=== PATIENT | female | born 1955 | race African-American/Black ===

== ENCOUNTER 2017-11-04 08:57 | Observation (INO) ==
[2017-11-04 09:35] LABS: Basophils % 0.2 %; Eosinophils # 0.1 K/mcL (0.0-0.6); Eosinophils % 0.6 %; Hematocrit 44.3 % (35.3-44.9); Immature Granulocytes % 0.5 % (0-4); Lymphocytes # 2.2 K/mcL (0.6-4.6); Lymphocytes % 21.9 %; Mean Corpuscular HGB Conc 33.9 g/dL (31.6-35.5); Mean Corpuscular Hemoglobin 27.8 pg (28.0-33.3); Mean Corpuscular Volume 82.2 fL (83.0-100.0); Mean Platelet Volume 11.5 fL (9.4-12.4); Monocytes # 0.6 K/mcL (0.0-1.3); Monocytes % 5.8 %; Neutrophils # 7.2 K/mcL (1.6-8.9); Platelet Count 223 K/mcL (140-400); Red Blood Count 5.39 M/mcL (3.82-4.97); Red Cell Distribution Width 13.1 % (11.5-14.5)
[2017-11-04 09:41] LABS: Prothrombin Time 11.3 Seconds (9.4-12.1)
[2017-11-04 09:43] LABS: Activated Partial Thrombo Time 36.6 Seconds (26.0-36.0)
[2017-11-04 09:57] LABS: BUN/Creatinine Ratio 16 (6-26); Blood Urea Nitrogen 10 mg/dL (8-23); Calcium 9.5 mg/dL (8.6-10.3); Carbon Dioxide 27 mEq/L (23-29); Chloride 101 mEq/L (98-107); Glucose 331 mg/dL (70-105); Osmolality,Calculated 290 (280-300); Potassium 3.7 mEq/L (3.5-5.1); Sodium 134 mEq/L (136-145); Troponin I < 0.03 ng/mL (< 0.04); eGFR For Non-African Americans > 60 (> 60)
[2017-11-04] MEDS ORDERED: Aspirin 81 MG TAB.CHEW PO ONE (10:34)
[2017-11-04] MEDS ORDERED: Ondansetron 4 MG/2 ML VIAL IVP ONE (10:34)
[2017-11-04] MEDS ORDERED: 0.9 % Sodium Chloride 1,000 ML IVC ONE (10:34)
[2017-11-04] MEDS ORDERED: *HR* FentaNYL (PF) 100 MCG/2 ML VIAL IVP ONE (10:34)
[2017-11-04 10:55] LABS: Bilirubin,Urine Negative (Negative); Blood,Urine Negative (Negative); Clarity,Urine Clear (Clear); Color,Urine Yellow (Yellow); Glucose,Urine (UA) >=1000 mg/dL (Normal); Ketones,Urine Negative (Negative); Leukocyte Esterase,Urine Negative (Negative); Nitrite,Urine Negative (Negative); Protein,Urine Negative (Neg-Trace); Specific Gravity,Urine 1.025 (1.010-1.025); Urobilinogen,Urine Normal (Normal)
--- NOTE | 2017-11-04 11:12 | Emergency Department Note ---
Disposition Clinical Impression: Chest pain, rule out acute myocardial infarction Disposition: Admitted As Inpatient Condition: Fair Instructions: Chest Pain (ED) Time of Disposition: 11:00 General Adult HPI - General Chief complaint: ED General Medical Stated complaint: CP x3 wks Time Seen by Provider: 11/04/17 09:06 Source: patient Mode of arrival: ambulatory Limitations: no limitations Nursing Notes Reviewed: Yes Vital Signs Reviewed: Yes - History of Present Illness HPI Narrative: 61-year-old female presents emergency Department with concerns of chest pain, nausea, shortness of breath, weakness and fatigue increasing over the past 3 days. Patient does state her symptoms have been present intermittently over the past 3 weeks however they have been become much worse over the past 3 days. Patient denies a history of previous cardiac disease. She does have a history of lupus for which she takes plaque 10. She has a history of diabetes, tobacco abuse and elevated blood pressure. Patient denies recent fevers, chills , diarrhea. She was initially concerned about a skin lesion to the anterior abdomen which she states often occurs secondary to her lupus. Pain Scale: 7 - Related Data Home Medications Medication Instructions Recorded Confirmed Albuterol Sulfate [Proair Hfa] 2 puff IH Q4-6H PRN 12/08/16 12/08/16 Aspirin [Lo-Dose Aspirin EC] 81 mg PO DAILY 12/08/16 12/08/16 Atenolol [Tenormin] 50 mg PO DAILY 12/08/16 12/08/16 Budesonide/Formoterol 160/4.5 2 puff IH BID 12/08/16 12/08/16 [Symbicort 160/4.5] Cholecalciferol (D-3) [Vitamin D] 1,000 unit PO DAILY 12/08/16 12/08/16 Exenatide Microspheres [Bydureon] 2 mg SQ MAZARIEGOS 12/08/16 12/08/16 Hydroxychloroquine [Plaquenuil] 400 mg PO DAILY 12/08/16 12/08/16 Insulin Glargine,Hum.rec.anlog 78 unit SQ HS 12/08/16 12/08/16 [Lantus Solostar] Ipratropium/Albuterol Neb [Duoneb] 3 ml IH Q4HR 12/08/16 12/08/16 Losartan/HCTZ [Hyzaar 50-12.5 1 tab PO DAILY 12/08/16 12/08/16 Tablet] Lovastatin 10 mg PO DAILY 12/08/16 12/08/16 Mirtazapine [Remeron] 15 mg PO DAILY 12/08/16 12/08/16 Omeprazole [PriLOSEC] 20 mg PO DAILY 12/08/16 12/08/16 OxyCODONE Immed Rel [Roxicodone 5 5 mg PO Q8HR PRN 12/08/16 12/08/16 MG] Potassium Chloride [Klor-Con 10 meq PO DAILY 12/08/16 12/08/16 Sprinkle] Sertraline [Zoloft] 100 mg PO DAILY 12/08/16 12/08/16 clonazePAM [Klonopin] 2 mg PO TID 12/08/16 12/08/16 Previous Rx's Medication Instructions Recorded Simvastatin [Zocor] 20 mg PO HS #30 tablet 12/10/16 Allergies Allergy/AdvReac Type Severity Reaction Status Date / Time No Known Allergies Allergy Verified 11/04/17 09:07 All systems ED: reviewed and negative except as stated. Review of Systems: As Per HPI Past Medical History - Past Medical History Attestation: Yes The following information was validated with the patient. Source: patient Medical history: Reports: diabetes, fibromyalgia, hyperlipidemia, hypertension, other Surgical history: Reports: appendectomy, cholecystectomy, hysterectomy Psychiatric history: Reports: anxiety - Social History Smoking Status: Current some day smoker Smokeless Tobacco Status: No Alcohol use: Reports: none Drug use: Reports: none Physical Exam General: Alert and in no acute distress Skin: Warm, dry, superficial skin lesion to the anterior abdomen without evidence of induration, fluctuance or surrounding erythema Head: Normocephalic and atraumatic Neck: Supple, trachea midline and no tenderness Cardiovascular: RRR, no murmur, normal perfusion Respiratory: CTAB, no wheezing, cough, or respiratory distress Musculoskeletal: Normal strength, no tenderness, swelling or deformity GI: Soft, nontender, nondistended. Bowel sounds present Neuro: A&O to person, place, time and situation. No focal deficits noted on exam Psychiatric: cooperative and appropriate mood and affect. - General Limitations: no limitations General appearance: alert, in no apparent distress Course Vital Signs Temperature 98.1 F 11/04/17 09:06 Pulse Rate 83 11/04/17 09:06 Respiratory Rate 18 11/04/17 09:06 Blood Pressure 142/90 11/04/17 09:06 O2 Sat by Pulse Oximetry 98 11/04/17 09:06 Temperature 98.1 F 11/04/17 10:07 Pulse Rate 75 11/04/17 10:49 Respiratory Rate 16 11/04/17 10:49 Blood Pressure 142/90 11/04/17 10:49 O2 Sat by Pulse Oximetry 98 11/04/17 10:49 Oxygen Delivery Oxygen Delivery Room Air Medical Decision Making - MDM Narrative Medical decision making narrative: Bedside ultrasound did not show evidence of abscess. Abdomen is otherwise soft and is without rigidity or guarding and does not likely have a deep space infection and the skin lesion most likely needs appropriate wound care and does not likely need antibiotics. Patient is not neutropenic. Initial troponin was negative. EKG showed a normal sinus rhythm with a rate of 79 without evidence of STEMI or other dysrhythmia. Patient will be admitted the hospital for further care and evaluation of her chest pain weakness, and fatigue. - Medical Records Medical records reviewed: Yes I reviewed the patient's medical records. - Lab Data Lab results reviewed: Yes I reviewed the patient's lab results. Result diagrams: 11/04/17 09:27 11/04/17 09:27 Lab Results 11/04/17 11/04/17 11/04/17 Range/Units 09:27 09:27 09:27 WBC 10.1 (4.3-11.1) K/mcL RBC 5.39 H (3.82-4.97) M/mcL Hgb 15.0 (11.5-15.4) g/dL Hct 44.3 (35.3-44.9) % MCV 82.2 L (83.0-100.0) fL MCH 27.8 L (28.0-33.3) pg MCHC 33.9 (31.6-35.5) g/dL RDW 13.1 (11.5-14.5) % Plt Count 223 (140-400) K/mcL MPV 11.5 (9.4-12.4) fL Immature Gran % 0.5 (0-4) % Seg Neutrophils % 71.0 % Lymphocytes % 21.9 % Monocytes % 5.8 % Eosinophils % 0.6 % Basophils % 0.2 % Neutrophils # 7.2 (1.6-8.9) K/mcL Lymphocytes # 2.2 (0.6-4.6) K/mcL Monocytes # 0.6 (0.0-1.3) K/mcL Eosinophils # 0.1 (0.0-0.6) K/mcL Basophils # 0.0 (0.0-0.2) K/mcL PT 11.3 (9.4-12.1) Seconds INR 1.0 APTT 36.6 H (26.0-36.0) Seconds Sodium (136-145) mEq/L Potassium (3.5-5.1) mEq/L Chloride (98-107) mEq/L Carbon Dioxide (23-29) mEq/L BUN (8-23) mg/dL Creatinine (0.60-1.20) mg/dL Est GFR ( Amer) (> 60) Est GFR (Non-Af Amer) (> 60) BUN/Creatinine Ratio (6-26) Glucose (70-105) mg/dL Calculated Osmolality (280-300) Lactic Acid 1.1 (0.5-2.2) mmol/L Calcium (8.6-10.3) mg/dL Troponin I (< 0.04) ng/mL Urine Color (Yellow) Urine Clarity (Clear) Urine pH (5.0-8.0) pH Units Ur Specific [place] (1.010-1.025) Urine Protein (Neg-Trace) mg/dL Urine Glucose (UA) (Normal) mg/dL Urine Ketones (Negative) mg/dL Urine Blood (Negative) Urine Nitrite (Negative) Urine Bilirubin (Negative) Urine Urobilinogen (Normal) mg/dL Ur Leukocyte Esterase (Negative) Ur Culture Indicated? (NO) 11/04/17 11/04/17 Range/Units 09:27 10:42 WBC (4.3-11.1) K/mcL RBC (3.82-4.97) M/mcL Hgb (11.5-15.4) g/dL Hct (35.3-44.9) % MCV (83.0-100.0) fL MCH (28.0-33.3) pg MCHC (31.6-35.5) g/dL RDW (11.5-14.5) % Plt Count (140-400) K/mcL MPV (9.4-12.4) fL Immature Gran % (0-4) % Seg Neutrophils % % Lymphocytes % % Monocytes % % Eosinophils % % Basophils % % Neutrophils # (1.6-8.9) K/mcL Lymphocytes # (0.6-4.6) K/mcL Monocytes # (0.0-1.3) K/mcL Eosinophils # (0.0-0.6) K/mcL Basophils # (0.0-0.2) K/mcL PT (9.4-12.1) Seconds INR APTT (26.0-36.0) Seconds Sodium 134 L (136-145) mEq/L Potassium 3.7 (3.5-5.1) mEq/L Chloride 101 (98-107) mEq/L Carbon Dioxide 27 (23-29) mEq/L BUN 10 (8-23) mg/dL Creatinine 0.61 (0.60-1.20) mg/dL Est GFR ( Amer) > 60 (> 60) Est GFR (Non-Af Amer) > 60 (> 60) BUN/Creatinine Ratio 16 (6-26) Glucose 331 H (70-105) mg/dL Calculated Osmolality 290 (280-300) Lactic Acid (0.5-2.2) mmol/L Calcium 9.5 (8.6-10.3) mg/dL Troponin I < 0.03 (< 0.04) ng/mL Urine Color Yellow (Yellow) Urine Clarity Clear (Clear) Urine pH 6.0 (5.0-8.0) pH Units Ur Specific [place] 1.025 (1.010-1.025) Urine Protein Negative (Neg-Trace) mg/dL Urine Glucose (UA) >=1000 H (Normal) mg/dL Urine Ketones Negative (Negative) mg/dL Urine Blood Negative (Negative) Urine Nitrite Negative (Negative) Urine Bilirubin Negative (Negative) Urine Urobilinogen Normal (Normal) mg/dL Ur Leukocyte Esterase Negative (Negative) Ur Culture Indicated? NO (NO)
[2017-11-04] MEDS ORDERED: Naloxone 0.4 MG/ML INJ IVP PRN (13:43)
[2017-11-04] MEDS ORDERED: D5% in Water 1,000 ML IVC PRN (13:53)
[2017-11-04] MEDS ORDERED: Dextrose Gel 15 GM/37.5 ML TUBE PO PRN ×2 (13:53)
[2017-11-04] MEDS ORDERED: *HR* Dextrose 50 % in Water (Syg) 50 ML SYRINGE IVP PRN (13:53)
--- NOTE | 2017-11-04 14:40 | Internal Med History&Physical ---
<Paulo Perrin P - Last Filed: 11/04/17 14:21> Date of Encounter: 11/04/17 Time of Encounter: 13:15 Internal Medicine - H&P: HPI Chief complaint: Chest Pain Admitted From: Home Plans for Post Hospital Care: Home History of present illness: Ms. Mays is a 61 year old female with past medical history significant for hypertension, diabetes, hyperlipidemia, and tobacco abuse presents for heavy intermittent chest pain 7/10 for past 4-5 days. Denies any pain radiation or shortness of breath but admits to nausea. Thinks the pain may be related to her PCP stopping her Percocet. States pain medication improves chest pain but denies any exacerbating factors. States she had a negative stress test around one year ago for similar chest pain but does not recall any other cardiac testing. Also complains of abdominal wound which has been present for around 3 weeks and has remained relatively the same without drainage despite using OTC antibiotic ointment. States it is in the area of previous surgical scar from procedure 10 years ago, then had a "lupus flare up" that she repeatedly scratched, and has since been applying the ointment. The patient also stated she would like to talk with social worker aide to help her find a new PCP. Past Med Surg Social Fam HX - Past Medical History Medical history: asthma, diabetes, fibromyalgia, GERD, hyperlipidemia, hypertension, other Additional medical history: lupus Psychiatric history: anxiety, depression - Past Surgical History Surgical History: appendectomy, cholecystectomy, hysterectomy Additional surgical history: colostomy and reversal - Social History Smoking Status: Current some day smoker Packs per day: 7 per day Smokeless Tobacco Status: No Alcohol use: none Drug use: none - Family History Mother Living Status: Hx Family Cancer: Yes (breast cancer) Father Living Status: Hx Family Respiratory Disorders: Yes (copd) Internal Medicine - H&P: Meds Albuterol Sulfate [Proair Hfa] 2 puff IH Q4-6H PRN 12/08/16 [History] Aspirin [Lo-Dose Aspirin EC] 81 mg PO DAILY 12/08/16 [History] Atenolol [Tenormin] 50 mg PO DAILY 12/08/16 [History] Budesonide/Formoterol 160/4.5 [Symbicort 160/4.5] 2 puff IH BID 12/08/16 [ History] Cholecalciferol (D-3) [Vitamin D] 1,000 unit PO DAILY 12/08/16 [History] Exenatide Microspheres [Bydureon] 2 mg SQ MAZARIEGOS 12/08/16 [History] Hydroxychloroquine [Plaquenuil] 400 mg PO DAILY 12/08/16 [History] Insulin Glargine,Hum.rec.anlog [Lantus Solostar] 78 unit SQ HS 12/08/16 [History ] Ipratropium/Albuterol Neb [Duoneb] 3 ml IH Q4HR 12/08/16 [History] Losartan/HCTZ [Hyzaar 50-12.5 Tablet] 1 tab PO DAILY 12/08/16 [History] Lovastatin 10 mg PO DAILY 12/08/16 [History] Mirtazapine [Remeron] 15 mg PO DAILY 12/08/16 [History] Omeprazole [PriLOSEC] 20 mg PO DAILY 12/08/16 [History] Potassium Chloride [Klor-Con Sprinkle] 10 meq PO DAILY 12/08/16 [History] Sertraline [Zoloft] 100 mg PO DAILY 12/08/16 [History] Simvastatin [Zocor] 20 mg PO HS #30 tablet 12/10/16 [Rx] OxyCODONE/APAP 5/325 [Percocet 5/325 MG] 1 tab PO BID 11/04/17 [History] 3 Allergy/AdvReac Type Severity Reaction Status Date / Time No Known Allergies Allergy Verified 11/04/17 09:07 All Systems PM: A 10-system review of systems was performed and is negative for pertinent findings except as documented above in the HPI. - Constitutional Vitals: Temp Pulse Resp BP Pulse Ox 97.8 F 71 15 144/82 98 11/04/17 12:08 11/04/17 12:08 11/04/17 12:08 11/04/17 12:08 11/04/17 12:08 Exam: General: Alert and oriented, in no acute distress. Skin:Normal color, no rash. Anterior abdominal lesion noted with minimal serosanguineous drainage with dressing intact. HEENT:EOM, pupils equal, round and reactive. Cardiovascular:Heart sounds distant. Normal S1 & S2, no rubs, murmurs or gallops. No JVD. Pulse regular. Lungs:Normal breath sounds, no wheezes or crackles. Abdomen:Soft, non-tender, no rigidity. Extremities:No deformity, no edema or tenderness, no joint swelling or clubbing. Neurological:Normal cognition and motor skills. Pulses:Carotid and radial pulses normal +2. Rest of the physical exam is non contributory Internal Med - H&P Results - Labs CBC & Chem 7: 11/04/17 09:27 11/04/17 09:27 - Assessment and plan (1) Chest pain Current Visit: Yes Status: Acute Assessment and plan: ER EKG reported sinus rhythm. Continue cardiac surgeon. Initial troponin normal in ER, will repeat x2. Repeat labs in a.m. Patient reports normal stress test around one year ago. Qualifiers: Chest pain type: unspecified Qualified Code(s): R07.9 - Chest pain, unspecified (2) Drug withdrawal Current Visit: Yes Status: Acute Assessment and plan: Continue home PRN Percocet and Klonopin. OARRS reviewed with pharmacy and is appropriate. Social work consult to set up new PCP. Qualifiers: Substance type: opioid Qualified Code(s): F11.23 - Opioid dependence with withdrawal (3) Open wound anterior abdominal wall Current Visit: Yes Status: Acute Assessment and plan: Start bacitracin ointment. Consult wound team. Qualifiers: Encounter type: initial encounter Qualified Code(s): S31.109A - Unspecified open wound of abdominal wall, unspecified quadrant without penetration into peritoneal cavity, initial encounter (4) Low sodium levels Current Visit: Yes Status: Acute Assessment and plan: Liter bolus received in ER. Continue cardiac surgeon. Repeat BMP in a.m. - Time Spent With Patient Total time spent is greater than 50% in coordination of care (as documented) at patient's floor/unit and/or counseling patient: <Sr Ronyjeremy - Last Filed: 11/04/17 16:40> Date of Encounter: 11/04/17 Time of Encounter: 13:30 Internal Medicine - H&P: HPI History of present illness: Ms. Mays is a 61 year old female All Systems PM: A 10-system review of systems was performed and is negative for pertinent findings except as documented above in the HPI. - Constitutional Vitals: Temp Pulse Resp BP Pulse Ox 98.5 F 81 16 109/75 96 11/04/17 15:27 11/04/17 15:27 11/04/17 16:10 11/04/17 15:27 11/04/17 16:10 Internal Med - H&P Results - Labs CBC & Chem 7: 11/04/17 09:27 11/04/17 09:27 Labs: Cardiac Enzymes 11/04/17 Range/Units 15:02 Troponin I < 0.03 (< 0.04) ng/mL - Assessment and plan (1) Chest pain Current Visit: Yes Status: Acute Qualifiers: Chest pain type: unspecified Qualified Code(s): R07.9 - Chest pain, unspecified (2) Drug withdrawal Current Visit: Yes Status: Acute Qualifiers: Substance type: opioid Qualified Code(s): F11.23 - Opioid dependence with withdrawal (3) Open wound anterior abdominal wall Current Visit: Yes Status: Acute Qualifiers: Encounter type: initial encounter Qualified Code(s): S31.109A - Unspecified open wound of abdominal wall, unspecified quadrant without penetration into peritoneal cavity, initial encounter (4) Low sodium levels Current Visit: Yes Status: Acute - Time Spent With Patient Total time spent is greater than 50% in coordination of care (as documented) at patient's floor/unit and/or counseling patient: - Attending Attestation I saw and evaluated this patient and my medical decision-making was reviewed with the Nurse Practitioner. I agree with the documented findings, disposition and treatment plan as described except to any changes set forth below. We independently had [id number] contact with the patient. Patient with history of lupus presented with nonspecific complaints of generalized body aches, tiredness, nausea and vomiting and chest pain. Has been off her narcotic pain medications since her primary care did not refill them due to noncompliance with pain contract from recent travel. She reports that her pain has been flaring up since then. She takes Plaquenil for her lupus. She also complains of for boils that she developed over her prior abdominal incision site which opened up and was draining purulent material. On examination, patient is awake and alert. She has tenderness to palpation at her joints and on her chest wall. Old abdominal incision appears inflamed and there is open wound at the lower end of the incision with a purulent base. No discharge noted. S1 and S2 are normal. No wheezing. Lupus related arthritic pain and chest wall pain: Treat symptomatically. Pain flareup likely related to opioid withdrawal. We will treat symptomatically. Patient has had negative stress test within the past year. At this time further cardiac workup not warranted as patient's pain appears to be related to her lupus and is chronic. Nausea and vomiting: Treat with antiemetics as needed. Chronic opioid use: With symptoms of withdrawal. We will monitor closely. OARRS report reviewed. Treat symptomatically. SLE: COntinue plaquenil. Abdominal incision infection: Infection appears to be local. Will use topical antibiotic. Consult wound care. Consider intravenous antibiotics if it worsens.
[2017-11-04] MEDS: *HR* OxyCODONE/APAP 5/325 TABLET PO PRN ×2 (16:00→21:06)
[2017-11-04] MEDS: clonazePAM 1 MG TABLET PO PRN (16:00)
[2017-11-04] MEDS: Ondansetron 4 MG/2 ML VIAL IVP PRN ×2 (16:00→21:05)
[2017-11-04] MEDS: Ipratropium/Albuterol Neb 3 ML IH SCH ×2 (16:10→19:29)
[2017-11-04] MEDS: Insulin LISPRO 300 UNITS/3 ML VIAL SQ SCH ×2 (17:29→21:24)
[2017-11-04] MEDS: Budesonide/Formoterol 160/4.5 1 PUFF INH IH SCH (19:28)
[2017-11-04] MEDS ORDERED: Ipratropium/Albuterol Neb 3 ML IH PRN (19:44)
[2017-11-04] MEDS: Nicotine 7 MG PATCH.TD24 TD SCH (22:10)
[2017-11-05] MEDS: Ondansetron 4 MG/2 ML VIAL IVP PRN ×3 (03:30→18:24)
[2017-11-05 06:05] LABS: Basophils % 0.4 %; Eosinophils # 0.1 K/mcL (0.0-0.6); Eosinophils % 1.3 %; Hematocrit 39.5 % (35.3-44.9); Immature Granulocytes % 0.5 % (0-4); Lymphocytes % 37.5 %; Mean Corpuscular HGB Conc 33.4 g/dL (31.6-35.5); Mean Corpuscular Hemoglobin 27.8 pg (28.0-33.3); Mean Corpuscular Volume 83.2 fL (83.0-100.0); Monocytes # 0.4 K/mcL (0.0-1.3); Monocytes % 5.4 %; Neutrophils # 4.4 K/mcL (1.6-8.9); Platelet Count 209 K/mcL (140-400); Red Blood Count 4.75 M/mcL (3.82-4.97); Red Cell Distribution Width 13.2 % (11.5-14.5); Segmented Neutrophils % 54.9 %
[2017-11-05 06:08] LABS: Hemoglobin 13.2 g/dL (11.5-15.4)
[2017-11-05] MEDS ORDERED: Regadenoson 0.4 MG/5 ML SYRINGE IVP ONE (06:20)
[2017-11-05 06:27] LABS: BUN/Creatinine Ratio 23 (6-26); Blood Urea Nitrogen 13 mg/dL (8-23); Calcium 8.8 mg/dL (8.6-10.3); Carbon Dioxide 23 mEq/L (23-29); Chloride 105 mEq/L (98-107); Glucose 324 mg/dL (70-105); Osmolality,Calculated 295 (280-300); Potassium 3.7 mEq/L (3.5-5.1); Sodium 136 mEq/L (136-145); eGFR For Non-African Americans > 60 (> 60)
[2017-11-05] MEDS: Budesonide/Formoterol 160/4.5 1 PUFF INH IH SCH ×2 (07:38→19:38)
[2017-11-05] MEDS: Aspirin Enteric Coated 81 MG Tablet PO SCH (08:12)
[2017-11-05] MEDS: clonazePAM 1 MG TABLET PO PRN ×2 (08:12→18:24)
[2017-11-05] MEDS: Cholecalciferol (D-3) 1,000 UNIT TABLET PO SCH (08:13)
[2017-11-05] MEDS: Losartan/HCTZ 50-12.5 TABLET PO SCH (08:14)
[2017-11-05] MEDS: *HR* OxyCODONE/APAP 5/325 TABLET PO PRN ×2 (08:15→20:52)
[2017-11-05] MEDS ORDERED: Nicotine 7 MG PATCH.TD24 TD SCH (09:00)
--- NOTE | 2017-11-05 09:24 | Electrocardiograph Report ---
[facility] Video Test Date: 2017-11-04 Pat Name: Tasha Mays Department: Room: 3B44 Gender: F Barmaid: : [id number] Requested By: Melvin Kendrick Order Number: [id number] Reading MD: Real Duval Measurements Intervals [place] Rate: 79 P: 26 NH: 188 QRS: -17 QRSD: 93 T: 61 QT: 409 QTc: 469 Interpretive Statements Sinus rhythm Left ventricular hypertrophy Inferior infarct, old Anterior Q waves, possibly due to LVH Electronically Signed On 11-05-2017 9:23:09 EDT by Real Duval
[2017-11-05] MEDS: Nicotine 7 MG PATCH.TD24 TD SCH (11:07)
[2017-11-05] MEDS: Insulin LISPRO 300 UNITS/3 ML VIAL SQ SCH ×4 (11:08→21:02)
--- NOTE | 2017-11-05 16:11 | Internal Med Progress Note ---
Hospitalist Progress Note - Encounter Date of Encounter: 11/05/17 Time of Encounter: 16:09 - Subjective Interval History: Patient seen and examined at bedside today, no acute changes overnight. Denies any active chest pain at this time. - Exam Vitals: Temp Pulse Resp BP Pulse Ox 98.6 F 72 15 105/70 96 11/05/17 15:29 11/05/17 15:29 11/05/17 15:29 11/05/17 15:29 11/05/17 15:29 Exam: PHYSICAL EXAMINATION: GENERAL: The patient is an obese female in no apparent distress. She is alert and oriented x3. HEENT: Head is normocephalic and atraumatic. Extraocular muscles are intact. Pupils are equal, round, and reactive to light and accommodation. Nares appeared normal. Mouth is well hydrated and without lesions. Mucous membranes are moist. NECK: Supple. No carotid bruits. No lymphadenopathy or thyromegaly. LUNGS: Clear/diminished to auscultation. HEART: Regular rate and rhythm without murmur. Diffuse, Mild chest wall tenderness to palpation ABDOMEN: Soft, nontender, and nondistended. Positive bowel sounds. No hepatosplenomegaly was noted. EXTREMITIES: Without any cyanosis, clubbing, rash, lesions or edema. NEUROLOGIC: Cranial nerves II through XII are grossly intact. SKIN: No ulceration or induration present. - Assessment and Plan (1) Chest pain Current Visit: Yes Status: Acute Assessment and Plan: Atypical chest pain without diaphoresis, shortness of breath or radiation Risk factors include: diabetes, hyperlipidemia, hypertension, tobacco abuse and obesity Continue with ACS rule out Per my review the EKG does not show any ST-T wave changes concerning for ischemia Denies any current chest pains at this time Serial cardiac enzymes negative 3 Undergoing 2 day stress test first portion completed today Remain nothing by mouth after midnight to undergo second portion of stress test Continue ASA, arm, Zocor and beta stephanie TTE pending (2) Drug withdrawal Current Visit: Yes Status: Acute Assessment and Plan: Presenting with complaints of pain -History of chronic pain with history of lupus Has been on long-term opioids for greater than 9 years However this was recently down titrated per PCP with intention for cessation of treatment Sepsis likely was contributing to her current pain at this time Continue home PRN Percocet and Klonopin. OARRS reviewed with pharmacy and is appropriate. Social work consult to set up new PCP. (3) Open wound anterior abdominal wall Current Visit: Yes Status: Acute Assessment and Plan: cont bacitracin ointment. Consult wound team. (4) Low sodium levels Current Visit: Yes Status: Resolved Assessment and Plan: Liter bolus received in ER. Continue monitoring coordinator. Repeat BMP in a.m. - Time Spent with Patient Total time spent is greater than 50% in coordination of care (as documented) at patient's floor/unit and/or counseling patient: less than 15 minutes Plan of Care Discussed with: patient Internal Medicine: Result - Labs CBC & Chem 7: 11/05/17 04:36 11/05/17 04:36 Labs: Short CBC 11/05/17 Range/Units 04:36 WBC 7.9 (4.3-11.1) K/mcL Hgb 13.2 D (11.5-15.4) g/dL Hct 39.5 (35.3-44.9) % Plt Count 209 (140-400) K/mcL Neutrophils # 4.4 (1.6-8.9) K/mcL BMP 11/05/17 04:36 Sodium 136 Potassium 3.7 Chloride 105 Carbon Dioxide 23 BUN 13 Creatinine 0.57 L Glucose 324 H Calcium 8.8 Cardiac Enzymes 11/04/17 Range/Units 21:35 Troponin I < 0.03 (< 0.04) ng/mL - ABG Interpretation ABG results: PT/INR, D-dimer PT 11.3 Seconds (9.4-12.1) 11/04/17 09:27 Consult Discharge Plan - Plan Referrals: Janelle Parra [Primary Care Provider] - (1) Chest pain Qualifiers: Chest pain type: unspecified Qualified Code(s): R07.9 - Chest pain, unspecified (2) Drug withdrawal Qualifiers: Substance type: opioid Qualified Code(s): F11.23 - Opioid dependence with withdrawal (3) Open wound anterior abdominal wall Qualifiers: Encounter type: initial encounter Qualified Code(s): S31.109A - Unspecified open wound of abdominal wall, unspecified quadrant without penetration into peritoneal cavity, initial encounter
[2017-11-05] MEDS: *HR* Heparin 5,000 UNIT/ML VIAL SQ SCH (18:25)
[2017-11-05] MEDS: MICONAZOLE NITRATE 57 GM TUBE TP SCH (18:25)
[2017-11-05] MEDS ORDERED: Mirtazapine 15 MG TABLET PO SCH (21:00)
[2017-11-06] MEDS: Ondansetron 4 MG/2 ML VIAL IVP PRN ×2 (04:16→12:48)
[2017-11-06 05:41] LABS: Basophils % 0.5 %; Eosinophils # 0.1 K/mcL (0.0-0.6); Eosinophils % 1.3 %; Hemoglobin 13.6 g/dL (11.5-15.4); Immature Granulocytes % 0.7 % (0-4); Lymphocytes % 35.5 %; Mean Corpuscular HGB Conc 33.2 g/dL (31.6-35.5); Mean Corpuscular Hemoglobin 27.8 pg (28.0-33.3); Mean Corpuscular Volume 83.7 fL (83.0-100.0); Mean Platelet Volume 11.6 fL (9.4-12.4); Monocytes # 0.4 K/mcL (0.0-1.3); Monocytes % 5.1 %; Neutrophils # 4.9 K/mcL (1.6-8.9); Platelet Count 210 K/mcL (140-400); Red Cell Distribution Width 13.2 % (11.5-14.5); Segmented Neutrophils % 56.9 %
[2017-11-06] MEDS: *HR* Heparin 5,000 UNIT/ML VIAL SQ SCH (05:52)
[2017-11-06 06:06] LABS: BUN/Creatinine Ratio 26 (6-26); Blood Urea Nitrogen 15 mg/dL (8-23); Calcium 9.2 mg/dL (8.6-10.3); Carbon Dioxide 22 mEq/L (23-29); Chloride 105 mEq/L (98-107); Glucose 338 mg/dL (70-105); Osmolality,Calculated 294 (280-300); Potassium 3.8 mEq/L (3.5-5.1); Sodium 135 mEq/L (136-145); eGFR For Non-African Americans > 60 (> 60)
[2017-11-06 06:07] LABS: Chol/HDL Ratio 4.2 (0-4.9)
[2017-11-06 07:27] VITALS: BP 120/81
[2017-11-06] MEDS: Budesonide/Formoterol 160/4.5 1 PUFF INH IH SCH (07:36)
[2017-11-06] MEDS: Losartan/HCTZ 50-12.5 TABLET PO SCH (08:05)
[2017-11-06] MEDS: Aspirin Enteric Coated 81 MG Tablet PO SCH (08:06)
[2017-11-06] MEDS: *HR* OxyCODONE/APAP 5/325 TABLET PO PRN ×2 (08:06→13:55)
[2017-11-06] MEDS: Cholecalciferol (D-3) 1,000 UNIT TABLET PO SCH (08:06)
[2017-11-06] MEDS: clonazePAM 1 MG TABLET PO PRN ×2 (08:06→12:43)
[2017-11-06] MEDS: MICONAZOLE NITRATE 57 GM TUBE TP SCH (10:32)
[2017-11-06] MEDS: Insulin LISPRO 300 UNITS/3 ML VIAL SQ SCH ×2 (10:32→12:43)
[2017-11-06] MEDS: Nicotine 7 MG PATCH.TD24 TD SCH (10:38)
--- NOTE | 2017-11-06 12:28 | Discharge Summary ---
- NOTES TO OUTPATIENT PROVIDER Notes to Outpatient Provider: Discharge follow-up to discuss down titration of opiate medications. Patient reports that her PCP has been down titrating medications. She was noted to have issues with pain throughout stay, this is likely due to down titration of medications. Would benefit from pain management follow-up Orders not resulted at time of discharge: Pending orders 11/04/17 14:06 NM mary perf SPECT multi [NM] Routine 11/07/17 04:00 Basic Metabolic Panel AM 0400 Complete Blood Count [HEME] AM 0400 11/08/17 04:00 Basic Metabolic Panel AM 0400 Complete Blood Count [HEME] AM 0400 Date of Encounter: 11/06/17 Time of Encounter: 12:26 - Discharge Diagnosis (1) Chest pain Priority: Primary Status: Ruled-out Assessment and Plan: Atypical chest pain without diaphoresis, shortness of breath or radiation Risk factors include: diabetes, hyperlipidemia, hypertension, tobacco abuse and obesity Continue with ACS rule out Per my review the EKG does not show any ST-T wave changes concerning for ischemia Denies any current chest pains at this time Serial cardiac enzymes negative 3 Undergoing 2 day stress test first portion completed today Remain nothing by mouth after midnight to undergo second portion of stress test Continue ASA, arm, Zocor and beta stephanie AK ruled out Qualifiers: Chest pain type: unspecified Qualified Code(s): R07.9 - Chest pain, unspecified (2) Drug withdrawal Priority: Secondary Status: Acute Assessment and Plan: Presenting with complaints of pain -History of chronic pain with history of lupus Has been on long-term opioids for greater than 9 years However this was recently down titrated per PCP with intention for cessation of treatment Down titration of opiate medication is likely was contributing to her current pain at this time Continue home PRN Percocet and Klonopin. OARRS reviewed with pharmacy and is appropriate. Social work consult to set up new PCP. Qualifiers: Substance type: opioid Qualified Code(s): F11.23 - Opioid dependence with withdrawal (3) Open wound anterior abdominal wall Priority: Secondary Status: Acute Qualifiers: Encounter type: initial encounter Qualified Code(s): S31.109A - Unspecified open wound of abdominal wall, unspecified quadrant without penetration into peritoneal cavity, initial encounter (4) Low sodium levels Priority: Secondary Status: Resolved Hospital course: Ms. Mays is a 61 year old female with past medical history significant for hypertension, diabetes, hyperlipidemia, and tobacco abuse presents for heavy intermittent chest pain 7/10 for past 4-5 days. She also has a history of lupus and chronic pain disorder. ACS workup implemented, found to be unremarkable including troponins negative 3, a stress test that was negative for ischemia and perfusion imaging negative for defects or infarcts. In addition to this she had an echocardiogram showing normal LV size and systolic function LVEF 65%, normal RV size and function, normal LA and RA size, no hemodynamically significant valvular abnormalities and no pulmonary hypertension. She has been hyperglycemic throughout this stay but she was not receiving her basal insulin. Sliding scale increased and glucose improved. Patient informed that with elevated blood glucose she would benefit from further monitoring however, she declined and wishes to discharge home. Reporting that when she begins her basal insulin or blood glucose will return to normal. Basal insulin and home insulin regimen resumed at discharge. Otherwise uneventful hospital course. Patient instructed to return to the ED should chest pain returned. She verbalizes understanding and denies any further questions at this time. She has been instructed to follow-up with her PCP within 1 week of discharge. Discharge discussed with: patient, nurse - Time Spent with Patient Total time spent providing and/or coordinating discharge services: Less than 30 minutes - Discharge Medications Home Medications: Albuterol Sulfate [Proair Hfa] 2 puff IH Q4-6H PRN 12/08/16 [History] Aspirin [Lo-Dose Aspirin EC] 81 mg PO DAILY 12/08/16 [History] Atenolol [Tenormin] 50 mg PO DAILY 12/08/16 [History] Budesonide/Formoterol 160/4.5 [Symbicort 160/4.5] 2 puff IH BID 12/08/16 [ History] Cholecalciferol (D-3) [Vitamin D] 1,000 unit PO DAILY 12/08/16 [History] Exenatide Microspheres [Bydureon] 2 mg SQ MAZARIEGOS 12/08/16 [History] Hydroxychloroquine [Plaquenuil] 400 mg PO DAILY 12/08/16 [History] Insulin Glargine,Hum.rec.anlog [Lantus Solostar] 78 unit SQ HS 12/08/16 [History ] Ipratropium/Albuterol Neb [Duoneb] 3 ml IH Q4HR 12/08/16 [History] Losartan/HCTZ [Hyzaar 50-12.5 Tablet] 1 tab PO DAILY 12/08/16 [History] Lovastatin 10 mg PO DAILY 12/08/16 [History] Mirtazapine [Remeron] 15 mg PO DAILY 12/08/16 [History] Omeprazole [PriLOSEC] 20 mg PO DAILY 12/08/16 [History] Potassium Chloride [Klor-Con Sprinkle] 10 meq PO DAILY 12/08/16 [History] Sertraline [Zoloft] 100 mg PO DAILY 12/08/16 [History] Simvastatin [Zocor] 20 mg PO HS #30 tablet 12/10/16 [Rx] OxyCODONE/APAP 5/325 [Percocet 5/325 MG] 1 tab PO BID 11/04/17 [History] Allergies/Adverse Reactions: 3 Allergy/AdvReac Type Severity Reaction Status Date / Time No Known Allergies Allergy Verified 11/04/17 09:07 Date of admission: 11/04/17 11:18 Primary care physician: Janelle Parra Consults: 11/04/17 13:49 Consult to 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 11/04/17 15:01 Consult to Wound Care [CONS] Routine Reason for Consult: Anterior abdominal wound present on admission. Patient states it has been present for around 3 weeks and has remained relatively the same without drainage despite using OTC antibiotic ointment. States it is in the area of previous surgical scar from procedure 10 years ago, then had a "lupus flare up" that she repeatedly scratched, and has since been applying the ointment. Ordered bacitracin ointment BID, please advise of any recommendations. Call Completed: No Discharging clinician: Hung Kerr Anticipated date of discharge: 11/06/17 - Constitutional Vitals: Temp Pulse Resp BP Pulse Ox 98.0 F 65 20 120/81 98 11/06/17 07:25 11/06/17 07:25 11/06/17 07:36 11/06/17 07:25 11/06/17 07:36 Exam: PHYSICAL EXAMINATION: GENERAL: The patient is an obese female in no apparent distress. She is alert and oriented x3. HEENT: Head is normocephalic and atraumatic. Extraocular muscles are intact. Pupils are equal, round, and reactive to light and accommodation. Nares appeared normal. Mouth is well hydrated and without lesions. Mucous membranes are moist. NECK: Supple. No carotid bruits. No lymphadenopathy or thyromegaly. LUNGS: Clear/diminished to auscultation. HEART: RRR, S1, S2. Mild midsternal chest wall tenderness to palpation ABDOMEN: Soft, nontender, and nondistended. Positive bowel sounds. No hepatosplenomegaly was noted. EXTREMITIES: Without any cyanosis, clubbing, rash, lesions or edema. NEUROLOGIC: Cranial nerves II through XII are grossly intact. SKIN: No ulceration or induration present. - Patient Status Disposition: Home, Self-Care Condition: Fair Overall status at discharge: patient is back to baseline - Discharge Instructions Instructions: Chest Pain (DC) Follow Up With: Janelle Parra [Primary Care Provider] - 11/19/17 8:20 am - Diet and Activity Activity: increase activity as tolerated Diet: advance to your usual diet
[2017-11-06] MEDS ORDERED: Insulin Regular, Human 100 UNIT/ML SQ ONE (12:46)
[2017-11-06] MEDS ORDERED: Insulin LISPRO 300 UNITS/3 ML VIAL SQ SCH ×2 (16:30→21:00)
== END 2017-11-06 14:40 | disposition home or self-care (01) ==
LOC: EMEROOARM 08:57 → 3BNU 08:57
PROVIDERS: ADMIT Internal Medicine; ATTEND Internal Medicine

== ENCOUNTER 2019-03-26 20:53 | Observation (INO) ==
[2019-03-26] MEDS ORDERED: Isovue-370 500 ML BOTTLE IVP ONE (23:15)
[2019-03-26 23:31] LABS: Basophils % 0.3 %; Eosinophils # 0.1 K/mcL (0.0-0.6); Eosinophils % 0.7 %; Hematocrit 46.8 % (35.3-44.9); Hemoglobin 15.8 g/dL (11.5-15.4); Immature Granulocytes % 0.6 % (0-4); Lymphocytes # 2.5 K/mcL (0.6-4.6); Lymphocytes % 20.2 %; Mean Corpuscular HGB Conc 33.8 g/dL (31.6-35.5); Mean Corpuscular Hemoglobin 28.5 pg (28.0-33.3); Mean Corpuscular Volume 84.5 fL (83.0-100.0); Mean Platelet Volume 11.2 fL (9.4-12.4); Monocytes # 0.7 K/mcL (0.0-1.3); Monocytes % 5.9 %; Neutrophils # 9.1 K/mcL (1.6-8.9); Platelet Count 231 K/mcL (140-400); Red Blood Count 5.54 M/mcL (3.82-4.97); Red Cell Distribution Width 12.5 % (11.5-14.5); Segmented Neutrophils % 72.3 %; White Blood Count 12.5 K/mcL (4.3-11.1)
[2019-03-26 23:51] LABS: BUN/Creatinine Ratio 21 (6-26); Blood Urea Nitrogen 14 mg/dL (8-23); Calcium 9.4 mg/dL (8.6-10.3); Carbon Dioxide 26 mEq/L (23-29); Chloride 101 mEq/L (98-107); Glucose 420 mg/dL (70-105); Osmolality,Calculated 296 (280-300); Sodium 134 mEq/L (136-145); eGFR For African Americans > 60 (> 60); eGFR For Non-African Americans > 60 (> 60)
[2019-03-26 23:52] LABS: Troponin I < 0.03 ng/mL (< 0.04)
[2019-03-26] MEDS ORDERED: Ondansetron 4 MG/2 ML VIAL IVP ONE (23:58)
[2019-03-26] MEDS ORDERED: *HR* FentaNYL (PF) 100 MCG/2 ML VIAL IVP ONE (23:58)
[2019-03-27] MEDS ORDERED: Aspirin 325 MG TABLET PO ONE (00:13)
[2019-03-27 00:42] LABS: Bilirubin,Urine Negative (Negative); Blood,Urine Small (Negative); Clarity,Urine Clear (Clear); Color,Urine Yellow (Yellow); Glucose,Urine (UA) >=1000 mg/dL (Normal); Ketones,Urine Negative (Negative); Leukocyte Esterase,Urine Negative (Negative); Nitrite,Urine Negative (Negative); Protein,Urine 100 mg/dL (Neg-Trace); Specific Gravity,Urine > 1.030 (1.010-1.025); Urobilinogen,Urine Normal (Normal)
[2019-03-27 00:45] LABS: Bacteria,Urine None Seen per hpf (None-Few); Hyaline Casts,Urine None Seen per lpf (None-Few); Squamous Epithelial Cell,Urine Moderate per lpf (None-Few)
[2019-03-27] MEDS ORDERED: Insulin Regular, Human 100 UNIT/ML SQ ONE (01:01)
[2019-03-27] MEDS ORDERED: Sulfamethoxazole/Trimeth DS 1 EACH TABLET PO ONE (01:14)
[2019-03-27] MEDS ORDERED: cephALEXin 500 MG CAPSULE PO ONE (01:14)
[2019-03-27] MEDS ORDERED: *HR* Dextrose 50 % in Water (Syg) 50 ML SYRINGE IVP PRN (04:45)
[2019-03-27] MEDS ORDERED: Dextrose Gel 15 GM/37.5 ML TUBE PO PRN ×2 (04:45)
[2019-03-27] MEDS ORDERED: Naloxone 0.4 MG/ML INJ IVP PRN ×2 (04:45→07:37)
[2019-03-27] MEDS ORDERED: D5% in Water 1,000 ML IVC PRN (04:45)
[2019-03-27] MEDS: Ketorolac 30 MG/ML VIAL IVP PRN (05:36)
[2019-03-27] MEDS ORDERED: Insulin LISPRO 300 UNITS/3 ML VIAL SQ SCH (06:00)
[2019-03-27] MEDS ORDERED: Acetaminophen 325 MG TABLET PO PRN (07:37)
[2019-03-27] MEDS ORDERED: Nitroglycerin 0.4 MG TAB.SUBL SL PRN (07:42)
[2019-03-27] MEDS: Budesonide/Formoterol 160/4.5 1 PUFF INH IH SCH ×2 (07:59→23:03)
[2019-03-27] MEDS ORDERED: Regadenoson 0.4 MG/5 ML SYRINGE IVP ONE (08:11)
[2019-03-27] MEDS ORDERED: Aspirin Enteric Coated 81 MG Tablet PO SCH (09:00)
[2019-03-27] MEDS: Cholecalciferol (D-3) 1,000 UNIT (25MCG) TABLET PO SCH (09:45)
[2019-03-27] MEDS: Insulin DETEMIR 100 UNIT/ML X5UNITS SQ SCH ×2 (09:46→21:30)
[2019-03-27] MEDS: Gabapentin 300 MG CAPSULE PO SCH ×3 (09:46→21:30)
[2019-03-27] MEDS: *HR* OxyCODONE/APAP 5/325 TABLET PO SCH ×3 (09:46→21:30)
[2019-03-27] MEDS: Aspirin Enteric Coated 81 MG Tablet PO SCH (09:46)
[2019-03-27] MEDS ORDERED: Ipratropium/Albuterol Neb 3 ML IH PRN (09:49)
[2019-03-27] MEDS: Ondansetron 4 MG/2 ML VIAL IVP PRN ×2 (09:55→17:54)
[2019-03-27] MEDS: Insulin LISPRO 300 UNITS/3 ML VIAL SQ SCH ×2 (12:43→17:53)
[2019-03-27] MEDS ORDERED: Lidocaine/EPI 1:100k 1% 30 ML VIAL INFILT ONE (15:14)
[2019-03-27 19:36] LABS: Acinetobacter baumannii by PCR Not Detected (Not Detect); Candida albicans by PCR Not Detected (Not Detect); Candida glabrata by PCR Not Detected (Not Detect); Candida krusei by PCR Not Detected (Not Detect); Candida parapsilosis by PCR Not Detected (Not Detect); Candida tropicalis by PCR Not Detected (Not Detect); Enterobacter cloacae Cmplx PCR Not Detected (Not Detect); Enterobacteriaceae by PCR Not Detected (Not Detect); Enterococcus by PCR Not Detected (Not Detect); Escherichia coli by PCR Not Detected (Not Detect); Klebsiella oxytoca by PCR Not Detected (Not Detect); Klebsiella pneumoniae by PCR Not Detected (Not Detect); Proteus by PCR Not Detected (Not Detect); Pseudomonas aeruginosa by PCR Not Detected (Not Detect); Serratia marcescens by PCR Not Detected (Not Detect); Staphylococcus aureus by PCR Not Detected (Not Detect); Staphylococcus by PCR Not Detected (Not Detect); Streptococcus agalactiae(B)PCR Not Detected (Not Detect); Streptococcus by PCR Not Detected (Not Detect); Streptococcus pneumoniae PCR Not Detected (Not Detect); Streptococcus pyogenes (A) PCR Not Detected (Not Detect)
[2019-03-28] MEDS ORDERED: Nicotine 21 MG PATCH.TD24 TD STA (00:43)
[2019-03-28] MEDS: Ondansetron 4 MG/2 ML VIAL IVP PRN ×2 (04:24→14:54)
[2019-03-28] MEDS: Ketorolac 30 MG/ML VIAL IVP PRN (04:24)
[2019-03-28 06:03] LABS: Basophils % 0.4 %; Eosinophils # 0.1 K/mcL (0.0-0.6); Eosinophils % 1.2 %; Hematocrit 41.2 % (35.3-44.9); Immature Granulocytes % 0.4 % (0-4); Lymphocytes # 2.1 K/mcL (0.6-4.6); Mean Corpuscular Hemoglobin 28.4 pg (28.0-33.3); Mean Corpuscular Volume 83.6 fL (83.0-100.0); Mean Platelet Volume 11.4 fL (9.4-12.4); Monocytes # 0.7 K/mcL (0.0-1.3); Monocytes % 6.3 %; Neutrophils # 8.2 K/mcL (1.6-8.9); Platelet Count 186 K/mcL (140-400); Red Blood Count 4.93 M/mcL (3.82-4.97); Red Cell Distribution Width 12.7 % (11.5-14.5); Segmented Neutrophils % 72.7 %; White Blood Count 11.3 K/mcL (4.3-11.1)
[2019-03-28 06:08] LABS: Prothrombin Time 11.4 Seconds (9.4-12.1)
[2019-03-28 06:11] LABS: Activated Partial Thrombo Time 37.1 Seconds (26.0-36.0)
[2019-03-28 06:30] LABS: BUN/Creatinine Ratio 38 (6-26); Blood Urea Nitrogen 23 mg/dL (8-23); Calcium 9.1 mg/dL (8.6-10.3); Carbon Dioxide 24 mEq/L (23-29); Chloride 103 mEq/L (98-107); Chol/HDL Ratio 3.3 (0-4.9); Cholesterol 164 mg/dL (< 200); Glucose 315 mg/dL (70-105); HDL Cholesterol 49 mg/dL (40-59); LDL Cholesterol,Calculated 86 mg/dL (0-99); Magnesium 1.6 mg/dL (1.6-2.6); Osmolality,Calculated 294 (280-300); Phosphorous 3.7 mg/dL (2.7-4.5); Potassium 3.8 mEq/L (3.5-5.1); Sodium 134 mEq/L (136-145); Triglycerides 146 mg/dL (< 150); eGFR For African Americans > 60 (> 60); eGFR For Non-African Americans > 60 (> 60)
[2019-03-28] MEDS ORDERED: Regadenoson 0.4 MG/5 ML SYRINGE IVP ONE (07:41)
[2019-03-28] MEDS: Budesonide/Formoterol 160/4.5 1 PUFF INH IH SCH ×2 (08:25→19:46)
[2019-03-28] MEDS: Insulin LISPRO 300 UNITS/3 ML VIAL SQ SCH ×3 (09:30→17:49)
[2019-03-28] MEDS: Insulin DETEMIR 100 UNIT/ML X5UNITS SQ SCH (09:31)
[2019-03-28] MEDS: Gabapentin 300 MG CAPSULE PO SCH ×3 (09:31→20:17)
[2019-03-28] MEDS: Aspirin Enteric Coated 81 MG Tablet PO SCH (09:32)
[2019-03-28] MEDS: *HR* OxyCODONE/APAP 5/325 TABLET PO SCH ×3 (09:32→20:17)
[2019-03-28] MEDS: Cholecalciferol (D-3) 1,000 UNIT (25MCG) TABLET PO SCH (09:32)
[2019-03-28] MEDS: Nicotine 21 MG PATCH.TD24 TD SCH (14:49)
[2019-03-28] MEDS: clonazePAM 0.5 MG TABLET PO PRN (20:20)
[2019-03-28] MEDS ORDERED: Insulin LISPRO 300 UNITS/3 ML VIAL SQ SCH (21:00)
[2019-03-28] MEDS ORDERED: Insulin DETEMIR 100 UNIT/ML X5UNITS SQ SCH (21:00)
[2019-03-29] MEDS: Ondansetron 4 MG/2 ML VIAL IVP PRN ×2 (00:44→10:19)
[2019-03-29] MEDS: Ketorolac 30 MG/ML VIAL IVP PRN (01:14)
[2019-03-29] MEDS: Budesonide/Formoterol 160/4.5 1 PUFF INH IH SCH (07:47)
[2019-03-29] MEDS ORDERED: Losartan/HCTZ 50-12.5 TABLET PO SCH (09:00)
[2019-03-29] MEDS ORDERED: Insulin DETEMIR 100 UNIT/ML X5UNITS SQ SCH (09:00)
[2019-03-29] MEDS: Aspirin Enteric Coated 81 MG Tablet PO SCH (09:11)
[2019-03-29] MEDS: Cholecalciferol (D-3) 1,000 UNIT (25MCG) TABLET PO SCH (09:12)
[2019-03-29] MEDS: Gabapentin 300 MG CAPSULE PO SCH (09:12)
[2019-03-29] MEDS: *HR* OxyCODONE/APAP 5/325 TABLET PO SCH (09:12)
[2019-03-29] MEDS: Insulin LISPRO 300 UNITS/3 ML VIAL SQ SCH ×2 (09:13→11:59)
[2019-03-29] MEDS: clonazePAM 0.5 MG TABLET PO PRN (09:16)
[2019-03-29] MEDS: Nicotine 21 MG PATCH.TD24 TD SCH (09:17)
[2019-03-29 11:26] VITALS: BP 151/82
[2019-03-29] MEDS ORDERED: Nicotine 21 MG PATCH.TD24 TD SCH (12:48)
== END 2019-03-29 13:19 | disposition home or self-care (01) ==
LOC: EMEROOARM 20:53 → 3BNU 20:53 → SUATTDRO 03-27 02:02 → 3BNU 03-27 02:37
PROVIDERS: ADMIT Family Medicine; ATTEND Internal Medicine

== ENCOUNTER 2019-09-18 08:01 | Observation (INO) ==
[2019-09-18] MEDS ORDERED: Aspirin 81 MG TAB.CHEW PO ONE (08:07)
[2019-09-18] MEDS ORDERED: Isovue-370 500 ML BOTTLE IVP ONE (08:20)
[2019-09-18] MEDS ORDERED: Ondansetron 4 MG/2 ML VIAL IVP STA ×2 (08:30→10:40)
[2019-09-18] MEDS ORDERED: *HR* FentaNYL (PF) 100 MCG/2 ML VIAL IVP ONE (08:30)
[2019-09-18 08:33] LABS: Basophils % 0.3 %; Eosinophils # 0.1 K/mcL (0.0-0.6); Eosinophils % 0.6 %; Hematocrit 44.5 % (35.3-44.9); Hemoglobin 14.9 g/dL (11.5-15.4); Immature Granulocytes % 0.6 % (0-4); Lymphocytes # 1.7 K/mcL (0.6-4.6); Mean Corpuscular HGB Conc 33.5 g/dL (31.6-35.5); Mean Corpuscular Hemoglobin 27.7 pg (28.0-33.3); Mean Corpuscular Volume 82.9 fL (83.0-100.0); Monocytes # 1.1 K/mcL (0.0-1.3); Neutrophils # 6.7 K/mcL (1.6-8.9); Platelet Count 185 K/mcL (140-400); Red Blood Count 5.37 M/mcL (3.82-4.97); Red Cell Distribution Width 12.2 % (11.5-14.5); Segmented Neutrophils % 69.5 %; White Blood Count 9.7 K/mcL (4.3-11.1)
[2019-09-18] MEDS ORDERED: 0.9 % Sodium Chloride 1,000 ML IVC ONE (08:36)
[2019-09-18] MEDS ORDERED: Morphine Sulfate 2 MG/ML SYRINGE IVP STA ×2 (08:39→10:40)
[2019-09-18 08:42] LABS: Activated Partial Thrombo Time 36.3 Seconds (26.0-36.0)
[2019-09-18 08:43] LABS: INR 1.1; Prothrombin Time 12.4 Seconds (9.4-12.1)
[2019-09-18 08:57] LABS: Alanine Aminotransferase 25 Units/L (7-52); Albumin 3.6 g/dL (3.5-5.7); Albumin/Globulin Ratio 1.2 (1.1-2.2); Alkaline Phosphatase 447 Units/L (34-104); Aspartate Amino Transferase 20 Units/L (13-39); BUN/Creatinine Ratio 18 (6-26); Bilirubin,Direct 0.2 mg/dL (0.0-0.2); Bilirubin,Indirect 0.6 mg/dL (0.0-1.0); Bilirubin,Total 0.8 mg/dL (0.3-1.0); Blood Urea Nitrogen 12 mg/dL (8-23); Calcium 8.9 mg/dL (8.6-10.3); Carbon Dioxide 17 mEq/L (23-29); Chloride 100 mEq/L (98-107); Globulin 3.1 g/dL (2.4-3.5); Glucose 293 mg/dL (70-105); Lipase 5 Units/L (11-82); Osmolality,Calculated 285 (280-300); Potassium 3.2 mEq/L (3.5-5.1); Sodium 132 mEq/L (136-145); Total Protein 6.7 g/dL (6.4-8.9); Troponin I < 0.03 ng/mL (< 0.04); eGFR For African Americans > 60 (> 60); eGFR For Non-African Americans > 60 (> 60)
[2019-09-18 09:08] LABS: Bilirubin,Urine Small (Negative); Blood,Urine Large (Negative); Clarity,Urine Cloudy (Clear); Color,Urine Yellow (Yellow); Glucose,Urine (UA) 500 mg/dL (Normal); Ketones,Urine >=160 mg/dL (Negative); Leukocyte Esterase,Urine Trace (Negative); Nitrite,Urine Negative (Negative); Protein,Urine >=300 mg/dL (Neg-Trace); Specific Gravity,Urine >= 1.030 (1.010-1.025); Urobilinogen,Urine Normal (Normal)
[2019-09-18 09:23] LABS: Renal Epithelial Cells,Urine Few per hpf (None-Few); Squamous Epithelial Cell,Urine Few per hpf (None-Few); Transitional Epi Cells,Urine Few per hpf (None-Few)
[2019-09-18 09:24] LABS: Bacteria,Urine Moderate per hpf (None-Few); WBC,Urine 15-30 per hpf (0-3)
[2019-09-18] MEDS: 0.9 % Sodium Chloride 1,000 ML IVC SCH ×2 (10:19→11:30)
[2019-09-18 10:29] LABS: VBG HCO3 21 mEq/L (21-27); VBG PCO2 38 mmHg (41-51); VBG PH 7.34 pH Units (7.32-7.42); VBG PO2 94 mmHg (25-50)
[2019-09-18] MEDS ORDERED: Piperacillin/Tazobactam 3.375 GM in Water for inj. (sterile) 20 ML IVP ONE (10:56)
[2019-09-18] MEDS ORDERED: Insulin Human Regular 10 UNIT in 0.9 % Sodium Chloride 10 ML IV ONE (10:56)
[2019-09-18] MEDS ORDERED: Vancomycin 1,500 MG/265 ML IV.SOLN IVPB ONE (11:18)
[2019-09-18] MEDS ORDERED: *HR* HYDROcodone/Acet 5/325 mg TABLET PO PRN (11:26)
[2019-09-18] MEDS ORDERED: Naloxone 0.4 MG/ML INJ IVP PRN (11:26)
[2019-09-18] MEDS ORDERED: Dextrose Gel 15 GM/37.5 ML TUBE PO PRN ×2 (11:28)
[2019-09-18] MEDS ORDERED: *HR* Dextrose 50 % in Water (Vial) 50 ML VIAL IVP PRN (11:28)
[2019-09-18] MEDS ORDERED: D5% in Water 1,000 ML IVC PRN (11:28)
[2019-09-18] MEDS ORDERED: 0.9 % Sodium Chloride 1,000 ML IVC SCH (11:30)
[2019-09-18] MEDS ORDERED: Perflutren Lipid Microsphere 1.3 ML in 0.9 % Sodium Chloride 8.7 ML IVP ONE (11:42)
[2019-09-18 12:53] LABS: BUN/Creatinine Ratio 17 (6-26); Blood Urea Nitrogen 11 mg/dL (8-23); Calcium 7.8 mg/dL (8.6-10.3); Carbon Dioxide 19 mEq/L (23-29); Chloride 103 mEq/L (98-107); Glucose 239 mg/dL (70-105); Osmolality,Calculated 285 (280-300); Sodium 134 mEq/L (136-145); eGFR For African Americans > 60 (> 60); eGFR For Non-African Americans > 60 (> 60)
[2019-09-18 15:28] LABS: Estimated Average Glucose 335 mg/dl
[2019-09-18] MEDS: Ondansetron 4 MG/2 ML VIAL IVP PRN (16:00)
[2019-09-18] MEDS: *HR* Heparin 5,000 UNIT/ML VIAL SQ SCH ×2 (16:00→21:03)
[2019-09-18] MEDS: *HR* OxyCODONE Immed Rel 5 MG TABLET PO PRN ×2 (16:01→22:12)
[2019-09-18] MEDS: Insulin LISPRO 300 UNITS/3 ML VIAL SQ SCH ×3 (16:11→21:01)
[2019-09-18] MEDS: 0.9 % Sodium Chloride w KCl 40 MEQ/1,000 ML MLS IVC SCH ×2 (16:11→21:00)
[2019-09-18 18:00] LABS: BUN/Creatinine Ratio 18 (6-26); Blood Urea Nitrogen 9 mg/dL (8-23); Calcium 7.9 mg/dL (8.6-10.3); Carbon Dioxide 23 mEq/L (23-29); Chloride 108 mEq/L (98-107); Glucose 240 mg/dL (70-105); Osmolality,Calculated 293 (280-300); Sodium 138 mEq/L (136-145); eGFR For African Americans > 60 (> 60); eGFR For Non-African Americans > 60 (> 60)
[2019-09-18] MEDS: Piperacillin/Tazobactam 3.375 GM in 0.9 % Sodium Chloride Mini Bag 100 ML IVPB SCH (18:14)
[2019-09-18] MEDS: Insulin DETEMIR 100 UNIT/ML X5UNITS SQ SCH (21:09)
[2019-09-18] MEDS: Melatonin 3 MG TABLET PO ONE ×2 (23:30→23:51)
[2019-09-18] MEDS: Acetaminophen 325 MG TABLET PO PRN (23:49)
[2019-09-19] MEDS ORDERED: Vancomycin 1,500 MG/265 ML IV.SOLN IVPB SCH
[2019-09-19] MEDS: 0.9 % Sodium Chloride w KCl 40 MEQ/1,000 ML MLS IVC SCH (01:25)
[2019-09-19] MEDS: Piperacillin/Tazobactam 3.375 GM in 0.9 % Sodium Chloride Mini Bag 100 ML IVPB SCH ×3 (01:26→17:17)
[2019-09-19] MEDS: Ondansetron 4 MG/2 ML VIAL IVP PRN ×2 (05:01→17:34)
[2019-09-19] MEDS: *HR* OxyCODONE Immed Rel 5 MG TABLET PO PRN ×3 (05:08→20:31)
[2019-09-19] MEDS: *HR* Heparin 5,000 UNIT/ML VIAL SQ SCH ×3 (05:09→20:48)
[2019-09-19 05:12] LABS: Basophils % 0.7 %; Eosinophils # 0.1 K/mcL (0.0-0.6); Eosinophils % 1.4 %; Hematocrit 39.5 % (35.3-44.9); Hemoglobin 12.9 g/dL (11.5-15.4); Immature Granulocytes % 0.9 % (0-4); Lymphocytes # 1.5 K/mcL (0.6-4.6); Lymphocytes % 25.2 %; Mean Corpuscular HGB Conc 32.7 g/dL (31.6-35.5); Mean Corpuscular Hemoglobin 27.3 pg (28.0-33.3); Mean Corpuscular Volume 83.7 fL (83.0-100.0); Mean Platelet Volume 11.6 fL (9.4-12.4); Monocytes # 0.7 K/mcL (0.0-1.3); Monocytes % 12.4 %; Neutrophils # 3.4 K/mcL (1.6-8.9); Platelet Count 158 K/mcL (140-400); Red Blood Count 4.72 M/mcL (3.82-4.97); Red Cell Distribution Width 12.4 % (11.5-14.5); Segmented Neutrophils % 59.4 %; White Blood Count 5.8 K/mcL (4.3-11.1)
[2019-09-19 05:31] LABS: BUN/Creatinine Ratio 17 (6-26); Blood Urea Nitrogen 8 mg/dL (8-23); Calcium 7.9 mg/dL (8.6-10.3); Carbon Dioxide 21 mEq/L (23-29); Chloride 111 mEq/L (98-107); Glucose 232 mg/dL (70-105); Magnesium 1.5 mg/dL (1.6-2.6); Osmolality,Calculated 292 (280-300); Potassium 3.6 mEq/L (3.5-5.1); Sodium 138 mEq/L (136-145); eGFR For African Americans > 60 (> 60); eGFR For Non-African Americans > 60 (> 60)
[2019-09-19] MEDS: Insulin LISPRO 300 UNITS/3 ML VIAL SQ SCH ×4 (09:56→20:39)
[2019-09-19] MEDS: Gabapentin 300 MG CAPSULE PO PRN ×2 (10:30→22:44)
[2019-09-19] MEDS: Losartan/HCTZ 50-12.5 TABLET PO SCH (10:30)
[2019-09-19] MEDS ORDERED: Vancomycin 1,250 MG/262.5 ML IV.SOLN IVPB SCH (13:00)
[2019-09-19] MEDS: Ipratropium/Albuterol Neb 3 ML IH SCH ×2 (15:47→21:51)
[2019-09-19] MEDS ORDERED: Perflutren Lipid Microsphere 1.3 ML in 0.9 % Sodium Chloride 8.7 ML IVP ONE (16:03)
[2019-09-19] MEDS: atenoloL 50 MG TABLET PO SCH (17:17)
[2019-09-19] MEDS: Insulin DETEMIR 100 UNIT/ML X5UNITS SQ SCH (20:41)
[2019-09-19] MEDS ORDERED: Melatonin 3 MG TABLET PO ONE (20:45)
[2019-09-19] MEDS: Budesonide/Formoterol 160/4.5 1 PUFF INH IH SCH (21:51)
[2019-09-19] MEDS: Acetaminophen 325 MG TABLET PO PRN (22:46)
[2019-09-20 00:28] LABS: Basophils # 0.1 K/mcL (0.0-0.2); Basophils % 0.9 %; Eosinophils # 0.1 K/mcL (0.0-0.6); Eosinophils % 2.1 %; Hematocrit 39.2 % (35.3-44.9); Hemoglobin 12.6 g/dL (11.5-15.4); Immature Granulocytes % 1.9 % (0-4); Lymphocytes # 1.9 K/mcL (0.6-4.6); Lymphocytes % 32.5 %; Mean Corpuscular HGB Conc 32.1 g/dL (31.6-35.5); Mean Corpuscular Hemoglobin 27.2 pg (28.0-33.3); Mean Corpuscular Volume 84.7 fL (83.0-100.0); Mean Platelet Volume 11.7 fL (9.4-12.4); Monocytes # 0.7 K/mcL (0.0-1.3); Neutrophils # 2.8 K/mcL (1.6-8.9); Platelet Count 181 K/mcL (140-400); Red Blood Count 4.63 M/mcL (3.82-4.97); Red Cell Distribution Width 12.4 % (11.5-14.5); Segmented Neutrophils % 49.6 %; White Blood Count 5.7 K/mcL (4.3-11.1)
[2019-09-20 00:37] LABS: BUN/Creatinine Ratio 16 (6-26); Blood Urea Nitrogen 7 mg/dL (8-23); Calcium 8.4 mg/dL (8.6-10.3); Carbon Dioxide 20 mEq/L (23-29); Chloride 108 mEq/L (98-107); Glucose 247 mg/dL (70-105); Osmolality,Calculated 286 (280-300); Potassium 3.6 mEq/L (3.5-5.1); Sodium 135 mEq/L (136-145); eGFR For African Americans > 60 (> 60); eGFR For Non-African Americans > 60 (> 60)
[2019-09-20] MEDS ORDERED: Vancomycin 1,500 MG/265 ML IV.SOLN IVPB SCH (01:00)
[2019-09-20] MEDS: Piperacillin/Tazobactam 3.375 GM in 0.9 % Sodium Chloride Mini Bag 100 ML IVPB SCH (01:27)
[2019-09-20] MEDS: *HR* OxyCODONE Immed Rel 5 MG TABLET PO PRN ×4 (02:33→22:29)
[2019-09-20] MEDS: Ipratropium/Albuterol Neb 3 ML IH SCH ×3 (03:29→15:53)
[2019-09-20] MEDS: *HR* Heparin 5,000 UNIT/ML VIAL SQ SCH ×3 (05:00→22:15)
[2019-09-20] MEDS: Losartan/HCTZ 50-12.5 TABLET PO SCH (08:54)
[2019-09-20] MEDS: Aspirin Enteric Coated 81 MG Tablet PO SCH (08:54)
[2019-09-20] MEDS: atenoloL 50 MG TABLET PO SCH (08:54)
[2019-09-20] MEDS: Budesonide/Formoterol 160/4.5 1 PUFF INH IH SCH ×2 (10:25→20:34)
[2019-09-20] MEDS: Insulin LISPRO 300 UNITS/3 ML VIAL SQ SCH ×4 (10:28→22:31)
[2019-09-20] MEDS ORDERED: Aminoglycoside Consult 1 EACH MC ONE (11:01)
[2019-09-20] MEDS ORDERED: Nafcillin 2,000 MG in 0.9 % Sodium Chloride Mini Bag 100 ML IVPB SCH (12:00)
[2019-09-20] MEDS: Acetaminophen 325 MG TABLET PO PRN (14:41)
[2019-09-20] MEDS ORDERED: Ipratropium/Albuterol Neb 3 ML IH PRN (15:57)
[2019-09-20] MEDS: Nafcillin 2,000 MG in 0.9 % Sodium Chloride Mini Bag 100 ML IVPB SCH (18:12)
[2019-09-20] MEDS: Insulin DETEMIR 100 UNIT/ML X5UNITS SQ SCH (22:29)
[2019-09-20] MEDS: Ondansetron 4 MG/2 ML VIAL IVP PRN (22:29)
[2019-09-21] MEDS ORDERED: Melatonin 3 MG TABLET PO ONE ×2 (00:35→23:35)
[2019-09-21] MEDS: Nafcillin 2,000 MG in 0.9 % Sodium Chloride Mini Bag 100 ML IVPB SCH ×5 (00:36→23:33)
[2019-09-21] MEDS: *HR* OxyCODONE Immed Rel 5 MG TABLET PO PRN ×3 (06:37→18:56)
[2019-09-21] MEDS: *HR* Heparin 5,000 UNIT/ML VIAL SQ SCH ×3 (06:37→20:29)
[2019-09-21 06:51] LABS: Basophils # 0.1 K/mcL (0.0-0.2); Basophils % 1.1 %; Eosinophils # 0.1 K/mcL (0.0-0.6); Eosinophils % 2.3 %; Hematocrit 38.9 % (35.3-44.9); Hemoglobin 12.8 g/dL (11.5-15.4); Immature Granulocytes % 1.9 % (0-4); Lymphocytes # 1.8 K/mcL (0.6-4.6); Lymphocytes % 37.6 %; Mean Corpuscular HGB Conc 32.9 g/dL (31.6-35.5); Mean Corpuscular Volume 85.1 fL (83.0-100.0); Monocytes # 0.5 K/mcL (0.0-1.3); Monocytes % 10.9 %; Neutrophils # 2.2 K/mcL (1.6-8.9); Platelet Count 194 K/mcL (140-400); Red Blood Count 4.57 M/mcL (3.82-4.97); Red Cell Distribution Width 12.7 % (11.5-14.5); Segmented Neutrophils % 46.2 %; White Blood Count 4.8 K/mcL (4.3-11.1)
[2019-09-21 07:06] LABS: BUN/Creatinine Ratio 14 (6-26); Blood Urea Nitrogen 7 mg/dL (8-23); Calcium 8.9 mg/dL (8.6-10.3); Carbon Dioxide 26 mEq/L (23-29); Chloride 107 mEq/L (98-107); Glucose 134 mg/dL (70-105); Osmolality,Calculated 292 (280-300); Sodium 141 mEq/L (136-145); eGFR For African Americans > 60 (> 60); eGFR For Non-African Americans > 60 (> 60)
[2019-09-21] MEDS: Budesonide/Formoterol 160/4.5 1 PUFF INH IH SCH ×2 (07:39→21:20)
[2019-09-21] MEDS: Aspirin Enteric Coated 81 MG Tablet PO SCH (09:34)
[2019-09-21] MEDS: atenoloL 50 MG TABLET PO SCH (09:34)
[2019-09-21] MEDS: Losartan/HCTZ 50-12.5 TABLET PO SCH (09:34)
[2019-09-21] MEDS: Insulin LISPRO 300 UNITS/3 ML VIAL SQ SCH ×4 (09:35→20:24)
[2019-09-21] MEDS: Acetaminophen 325 MG TABLET PO PRN (11:25)
[2019-09-21] MEDS ORDERED: Ergocalciferol (VIT D2) 50,000 UNIT (1.25MG) CAP PO SCH (13:00)
[2019-09-21] MEDS: Nicotine 7 MG PATCH.TD24 TD SCH (15:21)
[2019-09-21] MEDS: Nystatin POWDER 30 GM BOTTLE TP SCH (15:22)
[2019-09-21] MEDS: Insulin DETEMIR 100 UNIT/ML X5UNITS SQ SCH (20:29)
[2019-09-21] MEDS: Ondansetron 4 MG/2 ML VIAL IVP PRN (20:29)
[2019-09-22] MEDS: *HR* OxyCODONE Immed Rel 5 MG TABLET PO PRN ×2 (01:00→08:39)
[2019-09-22] MEDS: *HR* Heparin 5,000 UNIT/ML VIAL SQ SCH (05:55)
[2019-09-22] MEDS: Nafcillin 2,000 MG in 0.9 % Sodium Chloride Mini Bag 100 ML IVPB SCH (05:56)
[2019-09-22] MEDS: Acetaminophen 325 MG TABLET PO PRN (06:08)
[2019-09-22 06:31] LABS: Basophils # 0.1 K/mcL (0.0-0.2); Basophils % 1.4 %; Eosinophils # 0.1 K/mcL (0.0-0.6); Hematocrit 40.2 % (35.3-44.9); Hemoglobin 13.1 g/dL (11.5-15.4); Immature Granulocytes % 4.5 % (0-4); Lymphocytes # 1.8 K/mcL (0.6-4.6); Lymphocytes % 34.8 %; Mean Corpuscular HGB Conc 32.6 g/dL (31.6-35.5); Mean Corpuscular Hemoglobin 27.5 pg (28.0-33.3); Mean Corpuscular Volume 84.3 fL (83.0-100.0); Mean Platelet Volume 11.5 fL (9.4-12.4); Monocytes # 0.5 K/mcL (0.0-1.3); Neutrophils # 2.4 K/mcL (1.6-8.9); Platelet Count 228 K/mcL (140-400); Red Blood Count 4.77 M/mcL (3.82-4.97); Red Cell Distribution Width 12.7 % (11.5-14.5); Segmented Neutrophils % 47.3 %; White Blood Count 5.1 K/mcL (4.3-11.1)
[2019-09-22 06:56] LABS: BUN/Creatinine Ratio 15 (6-26); Blood Urea Nitrogen 7 mg/dL (8-23); Calcium 9.1 mg/dL (8.6-10.3); Carbon Dioxide 26 mEq/L (23-29); Chloride 106 mEq/L (98-107); Glucose 109 mg/dL (70-105); Magnesium 1.8 mg/dL (1.6-2.6); Osmolality,Calculated 291 (280-300); Potassium 3.5 mEq/L (3.5-5.1); Sodium 141 mEq/L (136-145); eGFR For African Americans > 60 (> 60); eGFR For Non-African Americans > 60 (> 60)
[2019-09-22] MEDS: Budesonide/Formoterol 160/4.5 1 PUFF INH IH SCH (07:25)
[2019-09-22] MEDS: Nicotine 7 MG PATCH.TD24 TD SCH (08:38)
[2019-09-22] MEDS: atenoloL 50 MG TABLET PO SCH (08:39)
[2019-09-22] MEDS: Losartan/HCTZ 50-12.5 TABLET PO SCH (08:39)
[2019-09-22] MEDS: Aspirin Enteric Coated 81 MG Tablet PO SCH (08:39)
[2019-09-22] MEDS: Insulin LISPRO 300 UNITS/3 ML VIAL SQ SCH ×2 (08:39→11:37)
[2019-09-22] MEDS ORDERED: Doxycycline 100 MG CAPSULE PO SCH (09:00)
[2019-09-22] MEDS: Nystatin POWDER 30 GM BOTTLE TP SCH (10:58)
[2019-09-22] MEDS ORDERED: hydrALAZINE 10 MG TABLET PO ONE (11:24)
[2019-09-22 13:30] VITALS: BP 162/74
== END 2019-09-22 13:45 | disposition home or self-care (01) ==
LOC: 3ANU 08:01 → EMEROOARM 08:01 → SUATTDRO 11:00 → 3ANU 11:49
PROVIDERS: ADMIT Internal Medicine; ATTEND Internal Medicine

== ENCOUNTER 2021-06-20 10:37 | Observation (INO) ==
[2021-06-20] MEDS ORDERED: Fluconazole 150 MG TABLET PO ONE (11:16)
[2021-06-20] MEDS ORDERED: *HR* Labetalol 20 MG/4 ML SYRINGE IVP ONE (11:16)
[2021-06-20 11:53] LABS: Basophils % 0.6 %; Eosinophils # 0.1 K/mcL (0.0-0.6); Eosinophils % 1.3 %; Hematocrit 44.6 % (35.3-44.9); Hemoglobin 14.4 g/dL (11.5-15.4); Immature Granulocytes % 0.7 % (0-4); Lymphocytes # 1.9 K/mcL (0.6-4.6); Mean Corpuscular HGB Conc 32.3 g/dL (31.6-35.5); Mean Corpuscular Hemoglobin 28.2 pg (28.0-33.3); Mean Corpuscular Volume 87.5 fL (83.0-100.0); Mean Platelet Volume 11.3 fL (9.4-12.4); Monocytes # 0.4 K/mcL (0.0-1.3); Monocytes % 5.2 %; Neutrophils # 4.5 K/mcL (1.6-8.9); Platelet Count 179 K/mcL (140-400); Red Cell Distribution Width 12.3 % (11.5-14.5); Segmented Neutrophils % 64.2 %; White Blood Count 6.9 K/mcL (4.3-11.1)
[2021-06-20 12:00] LABS: INR 0.9; Prothrombin Time 9.7 Seconds (9.4-12.1)
[2021-06-20 12:02] LABS: Activated Partial Thrombo Time 37.2 Seconds (26.0-36.0)
[2021-06-20 12:13] LABS: Alanine Aminotransferase 22 Units/L (7-52); Albumin 3.5 g/dL (3.5-5.7); Albumin/Globulin Ratio 1.3 (1.1-2.2); Alkaline Phosphatase 204 Units/L (34-104); Aspartate Amino Transferase 11 Units/L (13-39); BUN/Creatinine Ratio 18 (6-26); Bilirubin,Indirect 0.5 mg/dL (0.0-1.0); Bilirubin,Total 0.5 mg/dL (0.3-1.0); Blood Urea Nitrogen 11 mg/dL (8-23); Calcium 9.1 mg/dL (8.6-10.3); Carbon Dioxide 26 mEq/L (23-29); Chloride 104 mEq/L (98-107); Globulin 2.8 g/dL (2.4-3.5); Glucose 350 mg/dL (70-105); Lipase 9 Units/L (11-82); Osmolality,Calculated 299 (280-300); Sodium 138 mEq/L (136-145); Total Protein 6.3 g/dL (6.4-8.9); Troponin I < 0.03 ng/mL (< 0.04); eGFR For African Americans > 60 (> 60); eGFR For Non-African Americans > 60 (> 60)
[2021-06-20 12:22] LABS: Influenza A PCR Negative (Negative); Influenza B PCR Negative (Negative); Resp. Syncytial Virus PCR Negative (Negative)
[2021-06-20 12:23] LABS: SARS-CoV-2 by PCR (In House) Negative (Negative)
[2021-06-20] MEDS ORDERED: Aspirin 325 MG TABLET PO ONE (13:54)
[2021-06-20] MEDS ORDERED: Ketorolac 30 MG/ML VIAL IVP ONE (13:54)
[2021-06-20] MEDS ORDERED: Naloxone 0.4 MG/ML INJ IVP PRN (14:04)
[2021-06-20] MEDS ORDERED: *HR* Dextrose 50 % in Water (Syg) 50 ML SYRINGE IVP PRN (14:07)
[2021-06-20] MEDS ORDERED: Dextrose 4 GM Chewable Tablets PO PRN ×2 (14:07)
[2021-06-20] MEDS ORDERED: D5% in Water 1,000 ML IVC PRN (14:07)
[2021-06-20] MEDS ORDERED: Perflutren Lipid Microsphere 1.3 ML in 0.9 % Sodium Chloride 8.7 ML IVP PRN (14:08)
[2021-06-20] MEDS ORDERED: Ipratropium/Albuterol Neb 3 ML IH PRN (14:19)
[2021-06-20 14:36] LABS: Chol/HDL Ratio 3.7 (0-4.9); Cholesterol 263 mg/dL (< 200); HDL Cholesterol 72 mg/dL (40-59); LDL Cholesterol,Calculated 146 mg/dL (< 100); Triglycerides 225 mg/dL (< 150)
[2021-06-20 15:02] LABS: Estimated Average Glucose 283 mg/dl; Hemoglobin A1C 11.5 %
[2021-06-20] MEDS: amLODIPine 5 MG TABLET PO SCH (15:41)
[2021-06-20] MEDS ORDERED: Nitroglycerin 0.4 MG TAB.SUBL SL PRN (16:15)
[2021-06-20] MEDS: *HR* Heparin 5,000 UNIT/ML VIAL SQ SCH (16:33)
[2021-06-20] MEDS: Insulin LISPRO 300 UNITS/3 ML VIAL SUBQ SCH (16:47)
[2021-06-20] MEDS ORDERED: *HR* Metoprolol 5 MG/5 ML VIAL IVP ONE (19:21)
[2021-06-20] MEDS ORDERED: Ondansetron 4 MG/2 ML VIAL IVP PRN (19:53)
[2021-06-20] MEDS ORDERED: tiZANidine 4 MG TABLET PO ONE (20:04)
[2021-06-20] MEDS ORDERED: Insulin LISPRO 300 UNITS/3 ML VIAL SUBQ SCH (21:00)
[2021-06-20] MEDS ORDERED: *HR* OxyCODONE/APAP 5/325 TABLET PO ONE (21:23)
[2021-06-21 03:08] LABS: Basophils % 0.4 %; Eosinophils # 0.1 K/mcL (0.0-0.6); Eosinophils % 1.6 %; Hematocrit 38.9 % (35.3-44.9); Hemoglobin 13.5 g/dL (11.5-15.4); Immature Granulocytes % 0.5 % (0-4); Lymphocytes # 2.6 K/mcL (0.6-4.6); Mean Corpuscular HGB Conc 34.7 g/dL (31.6-35.5); Mean Corpuscular Hemoglobin 29.5 pg (28.0-33.3); Mean Corpuscular Volume 84.9 fL (83.0-100.0); Mean Platelet Volume 11.7 fL (9.4-12.4); Monocytes # 0.5 K/mcL (0.0-1.3); Monocytes % 6.7 %; Platelet Count 181 K/mcL (140-400); Red Blood Count 4.58 M/mcL (3.82-4.97); Red Cell Distribution Width 12.5 % (11.5-14.5); Segmented Neutrophils % 54.8 %; White Blood Count 7.3 K/mcL (4.3-11.1)
[2021-06-21 03:24] LABS: BUN/Creatinine Ratio 35 (6-26); Blood Urea Nitrogen 16 mg/dL (8-23); Calcium 8.8 mg/dL (8.6-10.3); Carbon Dioxide 25 mEq/L (23-29); Chloride 106 mEq/L (98-107); Glucose 297 mg/dL (70-105); Magnesium 1.6 mg/dL (1.6-2.6); Osmolality,Calculated 296 (280-300); Phosphorous 3.5 mg/dL (2.7-4.5); Potassium 3.4 mEq/L (3.5-5.1); Sodium 137 mEq/L (136-145); eGFR For African Americans > 60 (> 60); eGFR For Non-African Americans > 60 (> 60)
[2021-06-21] MEDS: *HR* Heparin 5,000 UNIT/ML VIAL SQ SCH (06:17)
[2021-06-21] MEDS ORDERED: Regadenoson 0.4 MG/5 ML SYRINGE IVP ONE (06:17)
[2021-06-21 06:40] VITALS: PULSE 76; TEMP 98.3; O2SAT 95
[2021-06-21] MEDS ORDERED: NON-FORMULARY MEDICATION 1 EACH EACH (Insulin Lispro [Humalog Kwikpen U-100] 100 UNIT/ML I SQ PRN (07:50)
[2021-06-21] MEDS ORDERED: *HR* OxyCODONE/APAP 5/325 TABLET PO PRN (07:50)
[2021-06-21] MEDS ORDERED: Aspirin 81 MG TAB.CHEW PO SCH (09:00)
[2021-06-21] MEDS ORDERED: Insulin DETEMIR 100 UNIT/ML X5UNITS SUBQ SCH (09:00)
[2021-06-21] MEDS ORDERED: Gabapentin 300 MG CAPSULE PO SCH (09:00)
[2021-06-21] MEDS: Insulin LISPRO 300 UNITS/3 ML VIAL SUBQ SCH ×2 (09:41→12:50)
[2021-06-21] MEDS: amLODIPine 5 MG TABLET PO SCH (09:41)
[2021-06-21] MEDS ORDERED: amLODIPine 5 MG TABLET PO ONE (10:32)
[2021-06-21 11:52] VITALS: BP 158/89
== END 2021-06-21 13:28 | disposition home or self-care (01) ==
LOC: 3BNU 10:37 → EMEROOARM 10:37 → SUATTDRO 14:37 → 3BNU 15:20
PROVIDERS: ADMIT Internal Medicine; ATTEND Internal Medicine

== ENCOUNTER 2021-10-02 21:26 | Inpatient (IN) ==
[2021-10-03] MEDS ORDERED: Iopamidol - 370 500 ML MLS IVP ONE ×2 (00:05→00:06)
[2021-10-03] MEDS ORDERED: Morphine Sulfate 2 MG/ML SYRINGE IVP ONE (00:07)
[2021-10-03] MEDS ORDERED: Ondansetron 4 MG/2 ML VIAL IVP PRN (00:07)
[2021-10-03 00:52] LABS: Basophils % 0.5 %; Eosinophils # 0.1 K/mcL (0.0-0.6); Eosinophils % 1.2 %; Hematocrit 46.8 % (35.3-44.9); Hemoglobin 15.9 g/dL (11.5-15.4); Immature Granulocytes % 0.9 % (0-4); Lymphocytes # 2.8 K/mcL (0.6-4.6); Lymphocytes % 36.6 %; Mean Corpuscular Hemoglobin 28.6 pg (28.0-33.3); Mean Corpuscular Volume 84.2 fL (83.0-100.0); Mean Platelet Volume 11.2 fL (9.4-12.4); Monocytes # 0.4 K/mcL (0.0-1.3); Monocytes % 5.5 %; Neutrophils # 4.2 K/mcL (1.6-8.9); Platelet Count 198 K/mcL (140-400); Red Blood Count 5.56 M/mcL (3.82-4.97); Segmented Neutrophils % 55.3 %; White Blood Count 7.6 K/mcL (4.3-11.1)
[2021-10-03 01:03] LABS: Alanine Aminotransferase 79 Units/L (7-52); Albumin 3.3 g/dL (3.5-5.7); Albumin/Globulin Ratio 1.2 (1.1-2.2); Alkaline Phosphatase 369 Units/L (34-104); Aspartate Amino Transferase 27 Units/L (13-39); BUN/Creatinine Ratio 20 (6-26); Bilirubin,Direct 0.1 mg/dL (0.0-0.2); Bilirubin,Indirect 0.5 mg/dL (0.0-1.0); Bilirubin,Total 0.6 mg/dL (0.3-1.0); Blood Urea Nitrogen 10 mg/dL (8-23); Calcium 8.7 mg/dL (8.6-10.3); Carbon Dioxide 19 mEq/L (23-29); Chloride 104 mEq/L (98-107); Globulin 2.7 g/dL (2.4-3.5); Glucose 337 mg/dL (70-105); Osmolality,Calculated 292 (280-300); Potassium 3.5 mEq/L (3.5-5.1); Sodium 135 mEq/L (136-145); Troponin I < 0.03 ng/mL (< 0.04); eGFR For African Americans > 60 (> 60); eGFR For Non-African Americans > 60 (> 60)
[2021-10-03 01:07] LABS: INR 0.9; Prothrombin Time 10.5 Seconds (9.4-12.1)
[2021-10-03 01:09] LABS: Activated Partial Thrombo Time 36.6 Seconds (26.0-36.0)
[2021-10-03 03:09] LABS: Bacteria,Urine Few per hpf (None-Few); Bilirubin,Urine Negative (Negative); Blood,Urine Trace (Negative); Clarity,Urine Clear (Clear); Color,Urine Colorless (Yellow); Glucose,Urine (UA) >=1000 mg/dL (Normal); Ketones,Urine 150 mg/dL (Negative); Leukocyte Esterase,Urine Negative (Negative); Nitrite,Urine Negative (Negative); PH,Urine 6.5 pH Units (5.0-8.0); Protein,Urine >=300 mg/dL (Neg-Trace); RBC,Urine 0-3 per hpf (0-3); Specific Gravity,Urine > 1.030 (1.010-1.025); Squamous Epithelial Cell,Urine Few per hpf (None-Few); Urobilinogen,Urine Normal (Normal); WBC,Urine 0-3 per hpf (0-3)
[2021-10-03] MEDS ORDERED: Aspirin 325 MG TABLET PO ONE (04:12)
[2021-10-03] MEDS ORDERED: *HR* Promethazine 25 MG/ML VIAL IM PRN (05:03)
[2021-10-03] MEDS ORDERED: Melatonin 3 MG TABLET PO PRN (05:03)
[2021-10-03] MEDS ORDERED: *HR* HYDROcodone/Acet 5/325 mg TABLET PO PRN (05:03)
[2021-10-03] MEDS ORDERED: Naloxone 0.4 MG/ML INJ IVP PRN (05:03)
[2021-10-03] MEDS ORDERED: Dextrose Gel 15 GM/37.5 ML TUBE PO PRN ×2 (05:09)
[2021-10-03] MEDS ORDERED: D5% in Water 1,000 ML IVC PRN (05:09)
[2021-10-03] MEDS ORDERED: *HR* Dextrose 50 % in Water (Syg) 50 ML SYRINGE IVP PRN (05:09)
[2021-10-03] MEDS: Acetaminophen 325 MG TABLET PO PRN (05:44)
[2021-10-03 06:18] LABS: Chol/HDL Ratio 3.9 (0-4.9); Cholesterol 243 mg/dL (< 200); HDL Cholesterol 63 mg/dL (40-59); LDL Cholesterol,Calculated 128 mg/dL (< 100); Triglycerides 258 mg/dL (< 150)
[2021-10-03] MEDS: *HR* Enoxaparin 40 MG/0.4 ML SYRINGE SQ SCH (07:20)
[2021-10-03] MEDS: *HR* OxyCODONE Immed Rel 5 MG TABLET PO PRN (07:43)
[2021-10-03] MEDS: Insulin LISPRO 300 UNITS/3 ML VIAL SUBQ SCH ×4 (11:28→22:10)
[2021-10-03] MEDS ORDERED: Perflutren Lipid Microsphere 1.3 ML in 0.9 % Sodium Chloride 8.7 ML IVP PRN (15:04)
[2021-10-03 15:39] LABS: Estimated Average Glucose 295 mg/dl; Hemoglobin A1C 11.9 %
[2021-10-03] MEDS: Insulin DETEMIR 100 UNIT/ML X5UNITS SUBQ SCH ×2 (16:30→22:36)
[2021-10-03] MEDS: Ondansetron 4 MG/2 ML VIAL IVP PRN (16:49)
[2021-10-03] MEDS ORDERED: Gabapentin 300 MG CAPSULE PO PRN (16:52)
[2021-10-03] MEDS ORDERED: Insulin DETEMIR 100 UNIT/ML X5UNITS SUBQ SCH (21:00)
[2021-10-03] MEDS ORDERED: Insulin LISPRO 300 UNITS/3 ML VIAL SUBQ SCH (21:00)
[2021-10-03] MEDS: *HR* OxyCODONE/APAP 5/325 TABLET PO PRN (22:03)
[2021-10-04] MEDS: *HR* OxyCODONE Immed Rel 5 MG TABLET PO PRN ×2 (04:19→11:47)
[2021-10-04] MEDS: Ondansetron 4 MG/2 ML VIAL IVP PRN ×2 (04:24→19:58)
[2021-10-04] MEDS: *HR* Enoxaparin 40 MG/0.4 ML SYRINGE SQ SCH (05:09)
[2021-10-04] MEDS: Insulin LISPRO 300 UNITS/3 ML VIAL SUBQ SCH ×7 (08:54→19:59)
[2021-10-04] MEDS: amLODIPine 5 MG TABLET PO SCH (08:55)
[2021-10-04] MEDS: Aspirin Enteric Coated 81 MG Tablet PO SCH (08:55)
[2021-10-04] MEDS: Insulin DETEMIR 100 UNIT/ML X5UNITS SUBQ SCH ×2 (08:55→19:59)
[2021-10-04] MEDS: Nicotine 14 MG PATCH.TD24 TD SCH (13:44)
[2021-10-04] MEDS: *HR* OxyCODONE/APAP 5/325 TABLET PO PRN (19:58)
[2021-10-05] MEDS: Acetaminophen 325 MG TABLET PO PRN (00:11)
[2021-10-05] MEDS: *HR* OxyCODONE Immed Rel 5 MG TABLET PO PRN (02:23)
[2021-10-05] MEDS: *HR* Enoxaparin 40 MG/0.4 ML SYRINGE SQ SCH (05:29)
[2021-10-05 07:04] VITALS: TEMP 98.3; O2SAT 99
[2021-10-05] MEDS: Insulin LISPRO 300 UNITS/3 ML VIAL SUBQ SCH ×4 (07:15→11:32)
[2021-10-05] MEDS: Nicotine 14 MG PATCH.TD24 TD SCH (07:15)
[2021-10-05] MEDS: Aspirin Enteric Coated 81 MG Tablet PO SCH (07:16)
[2021-10-05] MEDS: amLODIPine 5 MG TABLET PO SCH (07:16)
[2021-10-05] MEDS: Insulin DETEMIR 100 UNIT/ML X5UNITS SUBQ SCH (07:16)
[2021-10-05] MEDS: Ondansetron 4 MG/2 ML VIAL IVP PRN (07:21)
[2021-10-05] MEDS: *HR* OxyCODONE/APAP 5/325 TABLET PO PRN (07:21)
[2021-10-05 10:05] VITALS: BP 158/85; PULSE 77
[2021-10-06] MEDS ORDERED: amLODIPine 5 MG TABLET PO SCH (09:00)
== END 2021-10-05 13:10 | disposition home health service (06) | DRG 45 ==
LOC: EMEROOARM 21:26 → 3BNU 21:26 → SUATTDRO 10-03 13:34 → 3BNU 10-03 14:52
PROVIDERS: ADMIT Internal Medicine; ATTEND Internal Medicine